=== PATIENT | male | born 1965 | race Two or more races ===

== ENCOUNTER 2018-07-10 02:36 | Emergency (ER) | payer SELFPAY ==
[~2018-07-10] VITALS: Ht 160 cm; Wt 68.0 kg
[2018-07-10 03:10] VITALS: BP 126/83
[2018-07-10] MEDS: TETRACAINE HCL 0.5% OPTH(EYE) SOLN 4ML EACHEYE ONE (03:44)
[2018-07-10] MEDS: FLUORESCEIN SOD 1 MG TEST STRIP EACHEYE ONE (03:59)
[2018-07-10] MEDS: DexAMETHasone SOD PHOS 10MG/1ML VIAL INJ IM ONE (04:31)
== END 2018-07-10 04:22 | disposition home or self-care (01) ==
LOC: ER 02:43
DX: S05.02XA Injury of conjunctiva and corneal abrasion without foreign body, left eye, initial encounter (principal); X58.XXXA Exposure to other specified factors, initial encounter; Y93.89 Activity, other specified; Y99.8 Other external cause status; Y92.89 Other specified places as the place of occurrence of the external cause
CPT/HCPCS: 96372; 99283; J1100